=== PATIENT | female | born 1980 | race Two or more races ===

== ENCOUNTER 2017-01-05 12:13 | Emergency (ER) | payer OTHER ==
[~2017-01-05] VITALS: Ht 160 cm; Wt 131.5 kg
[~2017-01-05 12:13] MED LIST: ASPI-147 PO; CARV25TA PO; CHLO25TA2 PO; DORZ2SOL EACH EYE; GLIM2TAB PO; LANTINJ SQ; LISI40TA PO; METF-382 PO; METO10TA PO; PRAS10TA PO; PRAV40TA2 PO; PRED1SOL EACH EYE; TRAM50TA PO; [UNRECOGNIZED DRUG - CODE] TOPICAL; [UNRECOGNIZED DRUG - OTHER]
[2017-01-05 12:15] VITALS: BP 108/58; PULSE 72; RESP 20; TEMP 98.6; O2SAT 96
--- NOTE | 2017-01-05 12:49 | PD ---
Physical Exam Date Seen by Provider: Jan 05, 2017 Time Seen by Provider: 12:46 Data Data Last Documented VS Vital Signs Date Time Temp Pulse Resp B/P Pulse Ox O2 Delivery O2 Flow Rate FiO2 01/05/17 12:15 98.6 72 20 108/58 96 Room Air [facility] Supervised Visit with OLVIN: No Narrative Course 37 YO right hand dominant female with complaint of ~12 hour history of left wrist pain, worse with ROM. No known trauma. Patient is legally blind. Vitals reviewed. Awaiting bed placement. Sofia Rebolledo Jan 05, 2017 12:49
[2017-01-05] MEDS ORDERED: NAPR500T PO (13:04)
--- NOTE | 2017-01-05 13:09 | PD ---
HPI Chief Complaint: Injury Time Seen by Provider: 12:57 Travel History International Travel<30 days: No Contact w/Intl Traveler<30days: No Traveled to known affect area: No History of Present Illness HPI 37-year-old [id number]-ekeqsvcy female, legally blind, presents for evaluation of left wrist pain. Symptoms started last night. Pain is an aching pain in the left wrist that is worse with movement, relieved with rest. She takes tramadol for back pain and she took a dose of that which seemed to help a little bit but symptoms persist which prompted evaluation. She denies any trauma. She notes that she does occasionally type using her left hand but otherwise denies any significant repetitive motion activities. She does typically wear a watch on the left wrist. Denies any paresthesias, dysesthesias in the left hand. Denies any neck, proximal arm pain. No other complaints. PFSH Past Medical History Narrative Medical Reports history of hypertension, diabetes, legal blindness Hx Anticoagulant Therapy: Yes Cardiovascular Problems: Yes (CHF and Stent) Chemotherapy: No Diabetes: Yes Respiratory: No ?: Unknown LMP: LMP 12/07/16 Past Surgical History Hysterectomy: No Social History Alcohol Use: No Tobacco Use: No Allergies-Medications (Allergen,Severity, Reaction): Coded Allergies: No Known Allergies (Unverified , 10/22/16) Reported Meds & Prescriptions Reported Meds & Active Scripts Active Reported Diprolene Topical (Betamethasone Dipropionate Aug Topical) 0.05% Lotn 1 Applic TOPICAL DIRECTED Clotrimazole (Clotrimazole (Topical)) Unknown Strength Cry Unknown Dose Ecotrin Low Strength (Aspirin) 81 Mg Tabdr 81 Mg PO DAILY Prednisolone Sodium Phospate Opth (Prednisolone Sodium Phosphate Opth) 1% Soln 1 % EACH EYE DAILY Dorzolamide Opth Drops (Dorzolamide HCl) 2% Soln 1 Drop EACH EYE TID Lantus Solostar Pen Inj (Insulin Glargine) 300 Unit/3 Ml Pen 35 Units SQ HS Effient (Prasugrel) 10 Mg Tab 10 Mg PO DAILY Tramadol (Tramadol HCl) 50 Mg Tab 50 Mg PO Q6H PRN Chlorthalidone 25 Mg Tab 25 Mg PO DAILY Pravastatin 40 Mg Tab 40 Mg PO DAILY Lisinopril 40 Mg Tab 40 Mg PO DAILY Metoclopramide (Metoclopramide HCl) 10 Mg Tab 10 Mg PO BID Carvedilol 25 Mg Tab 25 Mg PO BID Glimepiride 2 Mg Tab 2 Mg PO DAILY Take with breakfast or first main meal Metformin ER (Metformin HCl) 1,000 Mg Johanna 1,000 Mg PO DAILY With evening meal Review of Systems Musculoskeletal: Positive: Pain Skin: Positive Other (denies open wounds) Neurologic: No: Paresthesia Physical Exam Narrative GENERAL: Well-developed well-nourished female in no acute distress SKIN: Warm and dry. CARDIOVASCULAR: Regular rate and rhythm. No murmur appreciated. RESPIRATORY: No accessory muscle use. Clear to auscultation. Breath sounds equal bilaterally. MUSCULOSKELETAL: No obvious deformities. There is no tenderness to palpation in the left wrist joint, no tenderness to palpation to the proximal left arm, neck, left forearm, left hand. There is pain with flexion, extension, supination, pronation of the left wrist. There is no joint effusion. 2+ radial pulse, capillary refill less than 2 seconds all digits left hand. There is no extremity edema. NEUROLOGICAL: Awake and alert. No obvious cranial nerve deficits. Motor grossly within normal limits. Normal speech. Data Data Last Documented VS Vital Signs Date Time Temp Pulse Resp B/P Pulse Ox O2 Delivery O2 Flow Rate FiO2 01/05/17 12:15 98.6 72 20 108/58 96 Room Air Orders Splint Or Brace Apply/Monitor (01/05/17 13:04) MDM Medical Decision Making Medical Screen Exam Complete: Yes Emergency Medical Condition: Yes Medical Record Reviewed: Yes Differential Diagnosis Tendinitis, median nerve entrapment, wrist strain, fracture, radiculopathy, DVT Narrative Course 37-year-old female with one-day history of left wrist pain, no trauma. She does wear a watch on a regular basis to the left wrist. Denies any significant repetitive motion activities. Examination reveals no tenderness to palpation, no obvious deformities. There is no evidence of a septic arthritis, no symptoms to suggest carpal tunnel syndrome, no evidence of DVT, compartment syndrome. She has pain with range of motion of left wrist suggesting a degree of tendinitis as the most likely etiology of her symptoms. Plan would be to treat her with NSAIDs, immobilization with a Velcro wrist splint. Recommend follow-up with primary care in 2 weeks for recheck. She is agreeable with this plan. Diagnosis Primary Impression: Tendinitis of left wrist Additional Instructions: Medication as needed. Take with meals. Velcro wrist splint as needed. Follow- up with primary care physician in 2 weeks for recheck. Return for any emergent medical conditions. Med/Other Pt SpecificInfo: Prescription(s) given, Orthopedic Instructions Scripts Naproxen 500 Mg [id number] Mg PO BID 14 Days Ref 0 Prov:Joellen Meneses DO 01/05/17 Disposition: 01 DISCHARGE HOME Condition: Stable Wiley Bianchi Jan 05, 2017 13:09
== END 2017-01-05 13:36 | disposition home or self-care (01) ==
LOC: NEPK 12:13
DX: M77.9 Enthesopathy, unspecified (principal); I10 Essential (primary) hypertension; E11.9 Type 2 diabetes mellitus without complications; H54.8 Legal blindness, as defined in USA; Z79.01 Long term (current) use of anticoagulants
CPT/HCPCS: 99283; L3908